=== PATIENT | male | born 1985 | race African-American/Black ===

== ENCOUNTER 2023-09-29 10:34 | Emergency (ER) | payer BC, OTHER ==
[2023-09-29] MEDS ORDERED: Lidocaine 1% w/Epinephrine 1:100K 20 ML VIAL ONE (13:20)
[2023-09-29] MEDS ORDERED: Ibuprofen 800 MG TAB ONE (13:23)
[2023-09-29 13:50] LABS: Amphetamine Not Detected (NotDetected); Barbiturates Screen Not Detected (NotDetected); Benzodiazepine Screen Not Detected (NotDetected); Cocaine Metabolite Screen Not Detected (NotDetected); Methadone Not Detected (NotDetected); Methamphetamine Not Detected (NotDetected); Opiate Screen Not Detected (NotDetected); Oxycodone Screen Not Detected (NotDetected); Phencyclidine (PCP) Not Detected (NotDetected); THC/Cannabinoid Screen Not Detected (NotDetected); Tricyclic Screen Not Detected (NotDetected)
[2023-09-29] MEDS ORDERED: Bacitracin 1 PK ONE (14:50)
== END 2023-09-29 14:50 | disposition short-term general hospital (02) ==
LOC: ERS 10:34
DX: S41.112A Laceration without foreign body of left upper arm, initial encounter (principal); I10 Essential (primary) hypertension; W26.8XXA Contact with other sharp object(s), not elsewhere classified, initial encounter; Y99.0 Civilian activity done for income or pay
CPT/HCPCS: 12002; 80306; 99282